=== PATIENT | female | born 1955 | race Caucasian/White ===

== ENCOUNTER 2024-12-02 17:10 | Emergency (ER) | payer OTHER ==
[~2024-12-02] VITALS: Ht 160 cm; Wt 62.1 kg
[2024-12-02 17:38] LABS: BASO # 0.1 10*3/uL (0.0-0.1); BASO % 0.8 % (0.0-1.0); EOS # 0.2 10*3/uL (0.0-0.4); EOS % 3.3 % (1.0-4.0); MEAN CELL VOLUME 87.2 fl (81.0-99.0); MEAN CORPUSCULAR HGB 27.1 pg (27.0-31.0); MEAN PLATELET VOLUME 10.2 fl (9.6-12.3); MONO # 0.5 10*3/uL (0.1-1.0); MONO % 7.4 % (3.0-9.0); NEUT # 3.6 10*3/uL (2.3-7.9); NEUT % 58.9 % (47.0-73.0); NUCLEATED RED BLOOD CELL 0.0 % (0.0-0.0); NUCLEATED RED BLOOD CELL 0.0 10*3/uL (0.0-0.0); PLATELET COUNT AUTOMATED 321 10*3/uL (130-400); RED CELL DISTRI WIDTH 14.2 % (0-14.5)
[2024-12-02 18:00] LABS: BUN 18 mg/dl (9-23)
[2024-12-02] MEDS ORDERED: PREDNISONE20 M1 PO (18:17)
[2024-12-02] MEDS ORDERED: ZITHROMAX250 MG PO (18:17)
[2024-12-02] MEDS ORDERED: AZITHROMYCIN 250 MG TAB PO ONE (18:20)
[2024-12-02] MEDS ORDERED: predniSONE 20 MG TAB PO ONE (18:20)
[2024-12-02] MEDS ORDERED: VITAMIN D325 MCG PO (18:24)
[2024-12-02] MEDS ORDERED: VAZALORE81 MG PO (18:24)
[2024-12-02] MEDS ORDERED: PROTONIX40 MG PO (18:25)
[2024-12-02] MEDS ORDERED: ELIQUIS5 M1 PO (18:25)
[2024-12-02] MEDS ORDERED: LEVOTHYROXINE75 MC1 PO (18:26)
[2024-12-02] MEDS ORDERED: METOPROLOL SUCC25 M2 PO (18:26)
[2024-12-02] MEDS ORDERED: PREDNISONE50 MG PO (18:51)
== END 2024-12-02 19:06 | disposition home or self-care (01) ==
LOC: ED 17:10
PROVIDERS: Nurse Practitioner Family
DX: J98.4 Other disorders of lung (principal); H57.11 Ocular pain, right eye